=== PATIENT | female | born 1960 | race Caucasian/White ===

== ENCOUNTER → 2018-11-29 | Outpatient (CLI) | payer OTHER ==
[~2018-11-29] MED LIST: LEVOTHYROXINE50 MCG PO; LIDOCAINE HCL 1% 2 ML AMP ONE; LIDOCAINE HCL 1% LOCAL INJ 20 ML VIAL ONE
[2018-11-29 16:13] LABS: BASOPHILS % 0.6 % (0.0-1.0); EOSINOPHILS # (AUTO) 0.1 (0.0-0.4); EOSINOPHILS % 1.1 % (0.0-6.0); HEMATOCRIT 40.4 % (34.2-44.1); HEMOGLOBIN 13.6 g/dL (12.0-16.0); LYMPHOCYTES # (AUTO) 1.6 (1.0-3.2); LYMPHOCYTES % 29.7 % (18.0-39.1); MEAN CORPUSCULAR HEMOGLOBIN 32.2 pg (28-32); MEAN CORPUSCULAR HGB CONC 33.7 g/dL (31-35); MEAN CORPUSCULAR VOLUME 95.7 fL (81-99); MONOCYTES # (AUTO) 0.6 (0.2-0.8); MONOCYTES % 12.2 % (4.4-11.3); NEUTROPHILS % 56.2 % (38.7-80.0); PLATELET COUNT 218 x10e3/uL (140-360); RED BLOOD COUNT 4.22 x10e6/uL (3.6-5.1); RED CELL DISTRIBUTION WIDTH 11.9 % (11.7-14.4)
[2018-11-29 16:30] LABS: ANION GAP 14.7 mmol/L (8-16); BLOOD UREA NITROGEN 11 mg/dL (7-26); BUN/CREATININE RATIO 15 (6-25); CALCIUM 9.9 mg/dL (8.4-10.2); CARBON DIOXIDE 25 mmol/L (22-29); CHLORIDE 105 mmol/L (98-107); CREATININE, SERUM 0.74 mg/dL (0.57-1.11); EST GLOMERULAR FILTRATION RATE > 60 ML/MIN (60-); GLUCOSE 114 mg/dL (74-118); POTASSIUM 3.7 mmol/L (3.5-5.1); SODIUM 141 mmol/L (136-145)
--- OUTSIDE RECORDS SUMMARY | 2018-12-03 08:26 | XMS REPORT ---
Author Author [facility] Address Unknown Phone Unavailable Care Team Providers Care Legislative Aide Name Role Phone Unavailable Unavailable Problems This patient has no known problems. Allergies, Adverse Reactions, Alerts This patient has no known allergies or adverse reactions. Medications This patient has no known medications. Results Test Description Test Time Test Comments Text Results Atomic Results Result Comments BREAST ULTRASOUND BILATERAL 2018-10-07 09:40:45 - BREAST ULTRASOUND BILATERALULTRASOUND OF BOTH BREASTS AND BOTH AXILLA: 10/07/2018CLINICAL: Abnormal mammogram. Comparison is made to exams dated 10/15/2014 ultrasound and 03/28/2012 ultrasound - [facility]-. Real-time ultrasound of both breasts and both axilla was performed. There is a 9 mm oval mass in the right breast at 9 o'clock, 9 cm from the skin. Color flow imaging demonstrates that there is no increase in vascularity. Clinical breast exam was unremarkable. No abnormalities were seen sonographically in the left breast or either axilla. IMPRESSION: PROBABLY BENIGN - FOLLOW-UP RECOMMENDEDThe 9 mm oval mass in the right breast is probably benign. A follow-up mammogram and an ultrasound in 6 months is recommended to demonstrate stability. Latanya Quintana M.D. dm/:10/07/2018 09:40:45 Fibreglass Laminator: Eliane Gaviria [facility], [facility]-FWletter sent: Short Term Follow Up Ultrasound BI-RADS: 3 Probably benign DIAG MAMM RIGHT SLAVA CAD DIGITAL 2018-10-07 09:37:40 - DIAG MAMM RIGHT SLAVA CAD DIGITALUNILATERAL RIGHT DIGITAL DIAGNOSTIC MAMMOGRAM 3D/2D WITH CAD: 10/07/2018CLINICAL: Abnormal Mammogram. Digital breast tomosynthesis was performed in addition to routine CC and MLO views. Current mammographic images were evaluated by either a [employer] M-Vu or a [employer] CAD (computer aided detection system). Comparison is made to exams dated 07/29/2018 mamm ogram, 06/22/2017 mammogram, and 01/31/2016 mammogram - [facility]-. The tissue of the right breast is heterogeneously dense. This may lower the sensitivity of mammography. No suspicious mass, architectural distortion, malignant type calcification, or lymph node abnormality detected. IMPRESSION: INCOMPLETE ASSESSMENT: ADDITIONAL IMAGING EVALUATION RECOMMENDEDUltrasound pending for additional evaluation. Latanya Quintana M.D. dm/penrad:10/07/2018 09:37:40 Entry: - 10/07/2018 12:19:17Imaging Technologist: Sharifa Vaca FW, [facility]-Mammogram BI- RADS: 0 Indeterminate SCR MAMM BILATERAL SLAVA CAD DIGITAL 2018-07-30 14:29:16 - SCR MAMM BILATERAL SLAVA CAD DIGITALBILATERAL DIGITAL SCREENING MAMMOGRAM 3D/2D WITH CAD: 07/29/2018CLINICAL: Asymptomatic. Digital breast tomosynthesis was performed in addition to routine CC and MLO views. Current mammographic images were evaluated by either a [employer]-Vu or a [employer]ang[employer] CAD (computer aided detection system). Comparison is made to exams dated 06/22/2017 mammogram, 01/30 mammogram, and 08/19/2014 mammogram - [facility]-. The tissue of both breasts is heterogeneously dense. This may lower the sensitivity of mammography. Questionable asymmetry versus superimposition of breast tissue only seen in the right breast mediolateral oblique view superiorly posterior depth approximately 7 cm from the nipple roughly measuring 10 mm best seen on MLO slice #40.No suspicious mass, architectural distortion, malignant type calcification, or lymph node abnormality detected in the left breast. IMPRESSION: INCOMPLETE ASSESSMENT: ADDITIONAL IMAGING EVALUATION REC OMMENDEDQuestionable asymmetry versus superimposition of breast tissue only seen in the right breast mediolateral oblique view posteriorly. Spot compression tomosynthesis and possible ultrasound are recommended at this time.Marcelino Cobb M.D. ss/:07/30/2018 14:29:16 Fibreglass Laminator: Eleanor Norris , [facility]-letter sent: Additional Imaging Mammogram BI-RADS: 0 Indeterminate SCR MAMM BILATERAL SLAVA CAD DIGITAL 2018-07-30 14:29:16 - SCR MAMM BILATERAL SLAVA CAD DIGITALBILATERAL DIGITAL SCREENING MAMMOGRAM 3D/2D WITH CAD: 07/29/2018CLINICAL: Asymptomatic. Digital breast tomosynthesis was performed in addition to routine CC and MLO views. Current mammographic images were evaluated by either a [employer] M-Vu or a [employer] Image[employer]er CAD (computer aided detection system). Comparison is made to exams dated 06/22/2017 mammogram, 01/30 mammogram, and 08/19/2014 mammogram - [facility]-. The tissue of both breasts is heterogeneously dense. This may lower the sensitivity of mammography. Questionable asymmetry versus superimposition of breast tissue only seen in the right breast mediolateral oblique view superiorly posterior depth approximately 7 cm from the nipple roughly measuring 10 mm best seen on MLO slice #40.No suspicious mass, architectural distortion, malignant type calcification, or lymph node abnormality detected in the left breast. IMPRESSION: INCOMPLETE ASSESSMENT: ADDITIONAL IMAGING EVALUATION REC OMMENDEDQuestionable asymmetry versus superimposition of breast tissue only seen in the right breast mediolateral oblique view posteriorly. Spot compression tomosynthesis and possible ultrasound are recommended at this time.Marcelino Cobb M.D. ss/:07/30/2018 14:29:16 Fibreglass Laminator: Eleanor ROBLES, [facility]-FWletter sent: Additional Imaging Mammogram BI-RADS: 0 Indeterminate
--- NOTE | 2018-12-04 09:09 | Diagnostic Imaging Report ---
#[id number] - MGDXRT #UNILATERAL RIGHT DIGITAL DIAGNOSTIC MAMMOGRAM WITH CAD: 12/03/2018 Comparison is made to exams dated: 12/03/2018 ultrasound - [facility], 10/07/2018 ultrasound, 10/07/2018 mammogram and 07/29/2018 mammogram - [facility]. Current study contains 4 films. The tissue of the right breast is heterogeneously dense. This may lower the sensitivity of mammography. Current study was also evaluated with a Computer Aided Detection (CAD) system. No significant masses, calcifications, or other findings are seen in the breast. There has been no significant interval change. IMPRESSION: BENIGN There is no mammographic evidence of malignancy. A 1 year screening mammogram is recommended. The patient will be notified by letter of the results. Greg engel/gurvinder:12/03/2018 14:41:23 Public Health Staff Nurse: Ewa PERLA(Isabelle)(M), [facility] letter sent: Normal Exam Mammogram BI-RADS: 2 Benign
--- NOTE | 2018-12-04 09:09 | Diagnostic Imaging Report ---
#[id number] - USBRELIMRT ULTRASOUND OF THE RIGHT BREAST : 12/03/2018 Comparison is made to exams dated: 10/07/2018 ultrasound, 10/07/2018 mammogram and 07/29/2018 mammogram - [facility]. Color flow and real-time ultrasound were performed on the right breast, the outer aspect. Originally, the patient was prepared for a needle localization and nodule excision. Target was described as a 9 mm hyoechoic lesion at the 9 o'clock position 9 cm from the nipple. Extensive scanning at the 9 o'clock 9 cm from the nipple position does not reveal a suspicious ultrasound abnormality. There is a 6 mm x 4 mm benign appearing hypoechoic nodule at 9 o'clock which is 4 cm from the nipple. This nodule is not suspicious appearing. Findings discussed with the Attending Surgeon at the time of interpretation. IMPRESSION: PROBABLY BENIGN - FOLLOW-UP RECOMMENDED Small benign appearing nodule at 9 o'clock 4 cm from the nipple is probably benign. A follow-up ultrasound in 6 months is recommended to demonstrate stability. The patient was notified of these findings and the plan for followup. Greg Lindsay Jr., D.O. cw/:12/03/2018 16:30:09 Part Time Receptionist: Jonathan Mclaughlin [facility], [facility] letter sent: Followup Recommended Ultrasound BI-RADS: 3 Probably benign
== END ==
LOC: RAD 05:00 → OR 12-03 08:23 → EDSTATUS 12-03 12:30
PROVIDERS: ATTEND Surgery
DX: Z01.818 Encounter for other preprocedural examination (principal); N63.10 Unspecified lump in the right breast, unspecified quadrant; Z53.8 Procedure and treatment not carried out for other reasons
CPT/HCPCS: 36415; 80048; 85025; 93005; J2001